=== PATIENT | male | born 1955 | race Caucasian/White ===

== ENCOUNTER 2019-07-10 22:45 | Emergency (ER) | payer MEDICARE, MEDICAID ==
[~2019-07-10] VITALS: Ht 180.3 cm; Wt 190.0 kg
[2019-07-10] MEDS ORDERED: dexamethasone sod phosphate 10mg/ml inj IM STA (23:01)
[2019-07-10] MEDS ORDERED: CETI10CA PO (23:01)
--- NOTE | 2019-07-10 23:24 | NUR ---
NOTIFIED DR BARNES REGARDING PT TRIAGE AND CURRENT BP PER PROVIDER ITS OKAY TO DISCHARGE THE PT BUT HE NEED TO F/U WITH PCP.
[2019-07-10 23:25] VITALS: BP 188/108
== END 2019-07-10 23:27 | disposition home or self-care (01) ==
LOC: ER 22:45
DX: L23.9 Allergic contact dermatitis, unspecified cause (principal); G89.29 Other chronic pain; F12.90 Cannabis use, unspecified, uncomplicated; Z56.0 Unemployment, unspecified; Z90.49 Acquired absence of other specified parts of digestive tract; Z88.2 Allergy status to sulfonamides; Z88.5 Allergy status to narcotic agent
CPT/HCPCS: 96372; 99283; J1100

== ENCOUNTER 2020-04-12 17:47 | Emergency (ER) | payer MEDICARE, MEDICAID ==
[~2020-04-12] VITALS: Ht 180.3 cm; Wt 90.0 kg
[~2020-04-12 17:47] MED LIST: CETI10CA PO
[2020-04-12 17:55] VITALS: BP 205/126
[2020-04-12] MEDS ORDERED: triamcinolone acetonide 40mg/ml inj IM ONE (19:00)
== END 2020-04-12 19:17 | disposition home or self-care (01) ==
LOC: ER 17:50
DX: L23.9 Allergic contact dermatitis, unspecified cause (principal); I10 Essential (primary) hypertension; G89.29 Other chronic pain; F12.90 Cannabis use, unspecified, uncomplicated; Z90.49 Acquired absence of other specified parts of digestive tract; Z72.89 Other problems related to lifestyle; Z56.0 Unemployment, unspecified; Z88.2 Allergy status to sulfonamides; Z88.5 Allergy status to narcotic agent; Z79.899 Other long term (current) drug therapy
CPT/HCPCS: 96372; 99283; J3301

== ENCOUNTER 2020-05-07 03:37 | Emergency (ER) | payer MEDICARE, MEDICAID ==
[~2020-05-07] VITALS: Ht 180.3 cm; Wt 80.4 kg
[2020-05-07 03:40] VITALS: BP 171/109
[2020-05-07] MEDS ORDERED: TRAM50TA2 PO (04:00)
[2020-05-07] MEDS ORDERED: ketorolac trometh inj. 60 MG/2 ML VIAL IM ONE (04:00)
[2020-05-07] MEDS ORDERED: CYCL-1 PO (04:00)
== END 2020-05-07 04:08 | disposition home or self-care (01) ==
LOC: ER 03:37
DX: M54.42 Lumbago with sciatica, left side (principal); I10 Essential (primary) hypertension; G89.29 Other chronic pain; F12.90 Cannabis use, unspecified, uncomplicated; Z90.49 Acquired absence of other specified parts of digestive tract; Z98.890 Other specified postprocedural states; Z72.89 Other problems related to lifestyle; Z56.0 Unemployment, unspecified; Z88.2 Allergy status to sulfonamides; Z88.5 Allergy status to narcotic agent; Z79.899 Other long term (current) drug therapy
CPT/HCPCS: 96372; 99283; J1885

== ENCOUNTER 2020-05-10 10:04 | Emergency (ER) | payer MEDICARE, MEDICAID ==
[~2020-05-10] VITALS: Ht 180.3 cm; Wt 84.1 kg
[~2020-05-10 10:04] MED LIST changes: +CYCL-1 PO; +TRAM50TA2 PO
[2020-05-10 10:06] VITALS: BP 161/107
[2020-05-10] MEDS ORDERED: morphine 4 MG/ML inj SYRINge IM ONE (11:25)
--- NOTE | 2020-05-10 11:29 | NUR ---
pt to xray ambulated.
--- NOTE | 2020-05-10 11:55 | NUR ---
back from ct scan in stable condition. morphine 4mg iv given for pain
[2020-05-10] MEDS ORDERED: OXYC-145 PO (13:58)
== END 2020-05-10 14:16 | disposition home or self-care (01) ==
LOC: ER 10:05
DX: M54.5 Low back pain (principal); M54.10 Radiculopathy, site unspecified; I10 Essential (primary) hypertension; F12.90 Cannabis use, unspecified, uncomplicated; G89.29 Other chronic pain; Z90.49 Acquired absence of other specified parts of digestive tract; Z98.890 Other specified postprocedural states; Z72.89 Other problems related to lifestyle; Z56.0 Unemployment, unspecified; Z88.2 Allergy status to sulfonamides; Z88.5 Allergy status to narcotic agent; Z79.899 Other long term (current) drug therapy
CPT/HCPCS: 72131; 73502; 96372; 99284; J2270

== ENCOUNTER 2021-11-12 12:47 | Emergency (ER) | payer MEDICARE, MEDICAID ==
[~2021-11-12] VITALS: Ht 180.3 cm; Wt 87.0 kg
[~2021-11-12 12:47] MED LIST changes: +OXYC-145 PO; -TRAM50TA2 PO
[2021-11-12] MEDS ORDERED: oxyCODONE IR 5mg (immed. release) tablet PO ONE (14:20)
[2021-11-12] MEDS ORDERED: PER5325T PO (14:27)
[2021-11-12] MEDS ORDERED: ketorolac trometh inj. 60 MG/2 ML VIAL IM ONE (15:10)
[2021-11-12 17:39] VITALS: BP 161/106
== END 2021-11-12 17:41 | disposition home or self-care (01) ==
LOC: ER 12:48
DX: S82.402A Unspecified fracture of shaft of left fibula, initial encounter for closed fracture (principal); M25.572 Pain in left ankle and joints of left foot; I10 Essential (primary) hypertension; G89.29 Other chronic pain; F12.90 Cannabis use, unspecified, uncomplicated; Z90.89 Acquired absence of other organs; Z98.890 Other specified postprocedural states; Z72.89 Other problems related to lifestyle; Z56.0 Unemployment, unspecified; Z88.2 Allergy status to sulfonamides; Z88.5 Allergy status to narcotic agent; Z79.899 Other long term (current) drug therapy; W19.XXXA Unspecified fall, initial encounter; Y93.89 Activity, other specified; Y92.89 Other specified places as the place of occurrence of the external cause; Y99.8 Other external cause status
CPT/HCPCS: 73610; 96372; 99284; J1885

== ENCOUNTER 2022-10-22 05:26 | Emergency (ER) | payer MEDICARE, MEDICAID ==
[~2022-10-22] VITALS: Ht 180.3 cm; Wt 84.1 kg
[2022-10-22] MEDS ORDERED: ketorolac trometh. 30mg/ml inj. IM ONE (06:35)
[2022-10-22] MEDS ORDERED: CYCL-1 PO (06:40)
[2022-10-22 07:24] VITALS: BP 161/101
== END 2022-10-22 07:26 | disposition home or self-care (01) ==
LOC: ER 05:27
DX: S69.92XA Unspecified injury of left wrist, hand and finger(s), initial encounter (principal); R07.81 Pleurodynia; I10 Essential (primary) hypertension; G89.29 Other chronic pain; M54.9 Dorsalgia, unspecified; Z88.2 Allergy status to sulfonamides; Z88.5 Allergy status to narcotic agent; W11.XXXA Fall on and from ladder, initial encounter; Y93.89 Activity, other specified; Y92.89 Other specified places as the place of occurrence of the external cause; Y99.8 Other external cause status
CPT/HCPCS: 71046; 73130; 93005; 96372; 99284; J1885

== ENCOUNTER 2023-04-12 07:11 | Day surgery (SDC) | payer MEDICARE, MEDICAID ==
[2023-04-06 09:17] LABS: APTT 28 SECONDS (22-32); BASOPHILS # (AUTO) 0.1 X10'3 (0-0.2); BASOPHILS % (AUTO) 0.7 % (0-1); EOSINOPHILS # (AUTO) 0.1 X10'3 (0-0.9); EOSINOPHILS % (AUTO) 0.5 % (0-6); HEMATOCRIT 40.6 % (42.0-52.0); HEMOGLOBIN 12.7 g/dl (14.0-17.9); LYMPHOCYTES # (AUTO) 3.5 X10'3 (1.1-4.8); LYMPHOCYTES % (AUTO) 29.3 % (21-51); MEAN CORPUSCULAR HEMOGLOBIN 20.4 PG (27.0-31.0); MEAN CORPUSCULAR HGB CONC 31.2 g/dL (33.0-36.5); MEAN CORPUSCULAR VOLUME 65.3 FL (78-98); MEAN PLATELET VOLUME 8.5 FL (7.4-10.4); MONOCYTES # (AUTO) 0.7 X10'3 (0-0.9); MONOCYTES % (AUTO) 5.9 % (2-12); NEUTROPHILS # (AUTO) 7.6 X10'3 (1.8-7.7); NEUTROPHILS % (AUTO) 63.6 % (42-75); PLATELET COUNT 359 X10'3 (140-440); RED BLOOD COUNT 6.22 X10'6 (4.70-6.10); RED CELL DISTRIBUTION WIDTH 16.4 % (11.5-14.5); WHITE BLOOD COUNT 11.9 X10'3 (4.5-11.0)
[2023-04-06 09:21] LABS: ALANINE AMINOTRANSFERASE 20 U/L (12-78); ALBUMIN 3.9 G/DL (3.4-5.0); ALBUMIN/GLOBULIN RATIO 1.1 (1.1-1.5); ALKALINE PHOSPHATASE 77 IU/L (46-116); ANION GAP 12 (8-16); ASPARTATE AMINO TRANSFERASE 19 U/L (10-37); BILIRUBIN,TOTAL 0.7 MG/DL (0.1-1.0); BLOOD UREA NITROGEN 14 MG/DL (7-18); BUN/CREATININE RATIO 16.7 (10.0-20.0); CALCIUM 9.1 MG/DL (8.5-10.1); CHLORIDE 104 MMOL/L (99-107); CREATININE 0.84 MG/DL (0.60-1.10); GLUCOSE 130 MG/DL (70-104); POTASSIUM 4.2 MMOL/L (3.5-5.1); SODIUM 142 MMOL/L (135-145); TOTAL CARBON DIOXIDE 26.4 MMOL/L (24-32); TOTAL PROTEIN 7.3 G/DL (6.4-8.2); eGFR > 90 ML/MIN
[2023-04-06 11:27] LABS: ANISOCYTOSIS 1+; HYPOCHROMASIA 1+; MICROCYTOSIS 2+; PLATELET ESTIMATE NORMAL
[2023-04-12] VITALS (15 sets, daily range): BP systolic 123–159; BP diastolic 38–94; PULSE 66–88; RESP 14–24; TEMP 98.7; O2SAT 94–96
[~2023-04-12] VITALS: Ht 180.3 cm; Wt 89.9 kg
[2023-04-12] MEDS ORDERED: methylPREDNISolone sod succ 125mg/2ml vial IV ONE (07:23)
[2023-04-12] MEDS ORDERED: normal saline 1,000 ML IV SCH (07:25)
[2023-04-12] MEDS ORDERED: LORazepam 0.5 MG tablet PO PRN (07:25)
[2023-04-12] MEDS ORDERED: diphenhydrAMINE 25mg capsule PO PRN (07:25)
[2023-04-12] MEDS ORDERED: nitroGLYCERIN 0.4mg SUBLingual tab SL PRN (07:25)
[2023-04-12] MEDS ORDERED: fentaNYL/PF 50MCG/1 ML 2ML syringe ONE ×2 (08:40→09:35)
[2023-04-12] MEDS ORDERED: LIDOcaine 1% 30ml preserv. free vial ONE (08:40)
[2023-04-12] MEDS ORDERED: iohexol 350MG/ML 100ml bottle IV ONE (08:41)
[2023-04-12] MEDS ORDERED: iohexol 350 MG/ML 50ML vial IV ONE (08:41)
[2023-04-12] MEDS ORDERED: midazolam 1 mg/ML 2ml injection ONE ×2 (08:41→09:29)
[2023-04-12] MEDS ORDERED: ALEN70TA80 PO (08:45)
[2023-04-12] MEDS ORDERED: HYDR-3973 PO (08:45)
[2023-04-12] MEDS ORDERED: MULT-1085 PO (08:45)
[2023-04-12] MEDS ORDERED: IBUP-1986 PO (08:45)
[2023-04-12] MEDS ORDERED: GEMF600T89 PO (08:45)
[2023-04-12] MEDS ORDERED: BACL20TA2 PO (08:45)
[2023-04-12] MEDS ORDERED: DOXE25CA3 PO (08:45)
[2023-04-12] MEDS ORDERED: DOXY100T2 PO (08:45)
[2023-04-12] MEDS ORDERED: LISI20TA28 PO (08:45)
[2023-04-12] MEDS ORDERED: ASPI-611 PO (08:45)
[2023-04-12] MEDS ORDERED: nicotine 14mg patch - 24hr TD ONE (10:10)
[2023-04-12] MEDS ORDERED: normal saline 1000ml 1,000 ML IV SCH (10:35)
[2023-04-12] MEDS ORDERED: HYDROcodone/acetaminophen 10/325mg tab PO PRN (10:35)
[2023-04-12] MEDS ORDERED: proCHLORperazine 10 MG/2 ml inj IV PRN (10:35)
[2023-04-12] MEDS ORDERED: OXAZEpam 15mg capsule PO PRN (10:35)
[2023-04-12] MEDS ORDERED: ondansetron/PF 4mg/2ml inj IV PRN (10:35)
[2023-04-12] MEDS ORDERED: HYDROcodone/acetaminophen 5mg/325mg tablet PO PRN (10:35)
[2023-04-12] MEDS ORDERED: HYDROmorphone 1 mg/ml syringe IV PRN (10:40)
== END 2023-04-12 17:28 | disposition home or self-care (01) ==
LOC: SSTAY O 07:11
PROVIDERS: ATTEND Internal Medicine Cardiovascular Disease
DX: R94.39 Abnormal result of other cardiovascular function study (principal); I25.119 Atherosclerotic heart disease of native coronary artery with unspecified angina pectoris; I42.9 Cardiomyopathy, unspecified; I10 Essential (primary) hypertension; E78.5 Hyperlipidemia, unspecified; G62.9 Polyneuropathy, unspecified; F11.20 Opioid dependence, uncomplicated; F17.210 Nicotine dependence, cigarettes, uncomplicated; Z72.89 Other problems related to lifestyle; Z88.2 Allergy status to sulfonamides; Z88.5 Allergy status to narcotic agent; Z91.041 Radiographic dye allergy status; Z86.73 Personal history of transient ischemic attack (TIA), and cerebral infarction without residual deficits; Z79.01 Long term (current) use of anticoagulants; Z79.899 Other long term (current) drug therapy
CPT/HCPCS: 36415; 71046; 80053; 85025; 85610; 85730; 93005; 93458; 99152; 99153; J1170; J1644; J2250; J2930; J3010; J3490; J7030; Q0163; Q9967; 85008; A6258

== ENCOUNTER 2023-04-25 10:36 | Outpatient (CLI) | payer MEDICARE, MEDICAID ==
[~2023-04-25 10:36] MED LIST changes: +ALEN70TA80 PO; +ASPI-611 PO; +BACL20TA2 PO; -CETI10CA PO; -CYCL-1 PO; +DOXE25CA3 PO; +DOXY100T2 PO; +GEMF600T89 PO; +HYDR-3973 PO; +IBUP-1986 PO; +LISI20TA28 PO; +MULT-1085 PO; -OXYC-145 PO
== END 2023-04-25 23:59 | disposition home or self-care (01) ==
LOC: VAS 10:36
PROVIDERS: ATTEND Internal Medicine Cardiovascular Disease
DX: I97.610 Postprocedural hemorrhage of a circulatory system organ or structure following a cardiac catheterization (principal); I72.4 Aneurysm of artery of lower extremity
CPT/HCPCS: 93926

== ENCOUNTER 2023-08-11 09:17 | Emergency (ER) | payer MEDICARE, MEDICAID ==
[~2023-08-11] VITALS: Ht 180.3 cm; Wt 82.5 kg
[~2023-08-11 09:17] MED LIST changes: +LIDO30CR TOP; +VALA100031 PO
[2023-08-11] MEDS ORDERED: NIRM1TAB PO (09:29)
[2023-08-11 09:57] VITALS: BP 150/119; PULSE 82; RESP 16; TEMP 99.6; O2SAT 95
== END 2023-08-11 09:59 | disposition home or self-care (01) ==
LOC: ER 09:17
DX: J06.9 Acute upper respiratory infection, unspecified (principal); I10 Essential (primary) hypertension; G89.29 Other chronic pain; M54.9 Dorsalgia, unspecified; F12.10 Cannabis abuse, uncomplicated; Z88.2 Allergy status to sulfonamides; Z88.5 Allergy status to narcotic agent; Z79.899 Other long term (current) drug therapy
CPT/HCPCS: 99283

== ENCOUNTER 2024-10-22 05:42 | Emergency (ER) | payer MEDICARE, MEDICAID ==
[~2024-10-22] VITALS: Ht 180.3 cm; Wt 80.5 kg
[~2024-10-22 05:42] MED LIST changes: +NIRM1TAB PO
[2024-10-22 06:21] LABS: BASOPHILS # (AUTO) 0.1 X10'3 (0-0.2); BASOPHILS % (AUTO) 0.5 % (0-1); EOSINOPHILS # (AUTO) 0.2 X10'3 (0-0.9); EOSINOPHILS % (AUTO) 1.6 % (0-6); HEMATOCRIT 42.8 % (42.0-52.0); HEMOGLOBIN 13.5 g/dl (14.0-17.9); LYMPHOCYTES # (AUTO) 2.9 X10'3 (1.1-4.8); LYMPHOCYTES % (AUTO) 21.1 % (21-51); MEAN CORPUSCULAR HEMOGLOBIN 20.4 PG (27.0-31.0); MEAN CORPUSCULAR HGB CONC 31.6 g/dL (33.0-36.5); MEAN CORPUSCULAR VOLUME 64.5 FL (78-98); MEAN PLATELET VOLUME 9.1 FL (7.4-10.4); MONOCYTES % (AUTO) 7.3 % (2-12); NEUTROPHILS # (AUTO) 9.7 X10'3 (1.8-7.7); NEUTROPHILS % (AUTO) 69.5 % (42-75); PLATELET COUNT 349 X10'3 (140-440); RED BLOOD COUNT 6.64 X10'6 (4.70-6.10); RED CELL DISTRIBUTION WIDTH 16.6 % (11.5-14.5); WHITE BLOOD COUNT 13.9 X10'3 (4.5-11.0)
[2024-10-22 06:35] LABS: ALANINE AMINOTRANSFERASE 26 U/L (12-78); ALKALINE PHOSPHATASE 72 IU/L (46-116); ANION GAP 8 (8-16); ASPARTATE AMINO TRANSFERASE 20 U/L (10-37); BILIRUBIN,TOTAL 0.8 MG/DL (0.1-1.0); BLOOD UREA NITROGEN 22 MG/DL (7-18); BUN/CREATININE RATIO 17.9 (10.0-20.0); CALCIUM 9.4 MG/DL (8.5-10.1); CHLORIDE 101 MMOL/L (99-107); CREATININE 1.23 MG/DL (0.60-1.10); GLUCOSE 175 MG/DL (70-104); POTASSIUM 3.9 MMOL/L (3.5-5.1); SODIUM 137 MMOL/L (135-145); TOTAL CARBON DIOXIDE 28.1 MMOL/L (24-32); TOTAL PROTEIN 7.9 G/DL (6.4-8.2); eCRCL 60 ML/MIN; eGFR 58 ML/MIN
[2024-10-22 06:45] LABS: PRO BRAIN NATRIURETIC PEPTIDE 1284 PG/ML (0-125)
[2024-10-22] MEDS: nicotine 21mg patch - 24 hr TD ONE (09:39)
[2024-10-22] MEDS: digoxin 250mcg/ml 2ml ampule IV ONE (11:11)
[2024-10-22 11:59] VITALS: TEMP 97.5
[2024-10-22 11:59] LABS: ANISOCYTOSIS 1+; ELLIPTOCYTES FEW; HYPOCHROMASIA 1+; MICROCYTOSIS 2+; PLATELET ESTIMATE NORMAL
[2024-10-22] MEDS: magnesium sulf-water 2g/50mL 50 ML IV ONE (12:16)
[2024-10-22] MEDS: diltiazem 5mg/ml 5ml inj. IV ONE (12:17)
[2024-10-22] MEDS ORDERED: MAGN64TA8 PO (12:17)
[2024-10-22 14:02] VITALS: BP 132/83; PULSE 65; RESP 18; O2SAT 98
== END 2024-10-22 14:04 | disposition home or self-care (01) ==
LOC: ER 05:43
DX: I48.20 Chronic atrial fibrillation, unspecified (principal); R07.89 Other chest pain; I10 Essential (primary) hypertension; G89.29 Other chronic pain; M54.9 Dorsalgia, unspecified; F12.90 Cannabis use, unspecified, uncomplicated; Z88.2 Allergy status to sulfonamides; Z88.5 Allergy status to narcotic agent; Z88.8 Allergy status to other drugs, medicaments and biological substances; Z90.49 Acquired absence of other specified parts of digestive tract; Z79.01 Long term (current) use of anticoagulants; Z79.82 Long term (current) use of aspirin; Z79.899 Other long term (current) drug therapy; Z56.0 Unemployment, unspecified; Z72.89 Other problems related to lifestyle
CPT/HCPCS: 36415; 71045; 80053; 83880; 84484; 85008; 85025; 93005; 93306; 96365; 96366; 96375; 99285; J1160; J3490